=== PATIENT | female | born 2000 | race African-American/Black ===

== ENCOUNTER 2020-01-02 09:26 | Outpatient (REF) | payer OTHER, SELFPAY | END 2020-01-02 09:27 | disposition home or self-care (01) | LOC: HO.LAB 09:26 | PROVIDERS: Visit Provider Internal Medicine | DX: Z20.828 Contact with and (suspected) exposure to other viral communicable diseases (principal) | CPT/HCPCS: U0003 ==

== ENCOUNTER 2020-01-19 15:47 | Outpatient (REF) | payer OTHER, SELFPAY | END 2020-01-19 15:48 | disposition home or self-care (01) | LOC: HO.LAB 15:47 | PROVIDERS: Visit Provider Internal Medicine | DX: Z20.828 Contact with and (suspected) exposure to other viral communicable diseases (principal) | CPT/HCPCS: C9803; U0003 ==